=== PATIENT | male | born 1960 | race Hispanic/Latino ===

== ENCOUNTER 2019-01-30 08:57 | Observation (INO) | payer BC, OTHER ==
[2019-01-30 09:08] VITALS: BMI 31.3
[2019-01-30 09:09] VITALS: RESP 18
--- NOTE | 2019-01-30 09:41 | ED PDOC ---
Arrival/HPI - General Chief Complaint: Cough, Cold, Congestion Historian: Patient - History of Present Illness Narrative History of Present Illness (Text): 01/30/19 09:37 58 y/o male, pmh including htn/hld, nkda, c/o coughing x 1 month. Pt. has been having productive coughing on and off x 1 month, productive coughing with phelgm, tried oral antibiotics outpatient, had CT chest yesterday at [facility] by pmd Dr. Jacobsen which told it's mass vs. pneumonia which he has been having bloody sputum, told by the pmd Dr. Jacobsen for admission, no chest pain or shortness of breath, no night sweat, no rash, no dizziness, no weight loss, no other medical or psychological complaints. Past Medical History - Provider Review Nursing Documentation Reviewed: Yes - Tetanus Immunization Tetanus Immunization: Up to Date - Past Medical History Past Medical History: No Previous - Cardiac Hx Hypertension: Yes Hx Pacemaker: No - Pulmonary Hx Respiratory Disorders: (collapsed left lung from an accident) - Neurological Hx Paralysis: No - HEENT Hx HEENT Disorder: No - Renal Hx Renal Disorder: No - Endocrine/Metabolic Hx Endocrine Disorders: No - Hematological/Oncological Hx Blood Transfusions: No Hx Blood Transfusion Reaction: No - Integumentary Hx Dermatological Disorder: No - Musculoskeletal/Rheumatological Hx Musculoskeletal Disorders: No - Genitourinary/Gynecological Hx Genitourinary Disorders: No - Psychiatric Hx Emotional Abuse: No Hx Physical Abuse: No Hx Substance Use: No - Surgical History Other/Comment: cyst removal - Anesthesia Hx Anesthesia: Yes Hx Anesthesia Reactions: No Hx Malignant Hyperthermia: No - Suicidal Assessment Feels Threatened In Home Enviroment: No Family/Social History - Physician Review Nursing Documentation Reviewed: Yes Family/Social History: Unknown Family HX Smoking Status: Never Smoked Hx Alcohol Use: Yes (ocassional drinking) Hx Substance Use: No Allergies/Home Meds Allergies/Adverse Reactions: Allergies No Known Allergies Allergy (Verified 06/13/14 16:44) Home Medications: Home Meds Medication Instructions Recorded Confirmed Lisinopril/Hydrochlorothiazide 1 tab PO DAILY 09/04/15 01/30/19 [Lisinopril-Hydrochlorothiazide 12.5 mg-20 mg] Omeprazole Magnesium [Prilosec Otc] 20 mg PO DAILY 09/07/15 01/30/19 Review of Systems - Review of Systems Constitutional: absent: Fatigue, Fevers Eyes: absent: Vision Changes ENT: absent: Hearing Changes Respiratory: Cough, Sputum. absent: SOB, Wheezing Cardiovascular: absent: Chest Pain Gastrointestinal: absent: Abdominal Pain, Diarrhea, Nausea, Vomiting Musculoskeletal: absent: Arthralgias, Back Pain Skin: absent: Rash, Pruritis, Other Neurological: absent: Headache, Dizziness Psychiatric: absent: Anxiety, Depression, Suicidal Ideation Physical Exam Vital Signs Reviewed: Yes Vital Signs Temp Pulse Resp BP Pulse Ox 01/30/19 09:08 98.0 F 76 18 116/64 99 Temperature: Afebrile Blood Pressure: Normal Pulse: Regular Respiratory Rate: Normal Appearance: Positive for: Well-Appearing, Non-Toxic, Comfortable Pain Distress: None Mental Status: Positive for: Alert and Oriented X 3 - Systems Exam Head: Present: Atraumatic, Normocephalic Pupils: Present: PERRL Extroacular Muscles: Present: EOMI Conjunctiva: Present: Normal Mouth: Present: Moist Mucous Membranes Pharnyx: No: ERYTHEMA, EXUDATE, TONSILS ENLARGED, Muffled/Hoarse Voice, Strider, Soft Palate/Uvular Edema Nose (External): Present: Atraumatic. No: Abrasion, Contusion, Laceration, Lesions Nose (Internal): Present: Normal Inspection, No Active Bleeding. No: Rhinorrhea, Septal Deviation, Septal Hematoma, Epistaxis Neck: Present: Normal Range of Motion, Trachea Midline. No: MIDLINE TENDERNESS, Paraspinal Tenderness, Lymphadenopathy Respiratory/Chest: Present: Clear to Auscultation, Good Air Exchange. No: Respiratory Distress, Accessory Muscle Use, Wheezes, Decreased Breath Sounds, Rales, Retracting, Rhonchi, Tachypneic, Tender to Palpation Cardiovascular: Present: Regular Rate and Rhythm, Normal S1, S2. No: Murmurs Abdomen: Present: Normal Bowel Sounds. No: Tenderness, Distention, Peritoneal Signs, Rebound, Guarding Back: Present: Normal Inspection Upper Extremity: Present: Normal Inspection. No: Cyanosis, Edema Lower Extremity: Present: Normal Inspection. No: Edema Neurological: Present: GCS=15, CN II-XII Intact, Speech Normal Skin: Present: Warm, Dry, Normal Color. No: Rashes Psychiatric: Present: Alert, Oriented x 3, Normal Insight, Normal Concentration Medical Decision Making ED Course and Treatment: 01/30/19 09:42 Differential: failure of outpatient pneumonia vs. cancer mass vs. dehydration -I spoke to Dr. Jacobsen about his report which is concerning for unresolved pneumonia vs. tumor from the CT chest. Dr. Jacobsen would like to admit the patient for IV rocephine/azithromycin and routine consult order for Dr. Leary. -Labs -ekg -cxr -IV rocephine and azithromycin -Observe and reassess 01/30/19 11:08 -EKG: NSR @ 60 BPM, no ST elevation or depression, T wave inversion on lead III. -Chest xray show lt. lung mass vs. consolidation -Labs are non-significant -BNP within normal limit -I discussed with the patient that he needs further evaluation, he agreed to be admitted. - RAD Interpretation Radiology Orders: 01/30/19 09:34 CHEST TWO VIEWS (PA/LAT) [RAD] Stat Date of service: 01/30/2019 HISTORY: Medical clearance. COMPARISON: 09/23/2014. FINDINGS: LUNGS: Left lower lobe infiltrate/mass. The area of interest measures approximately 9 cm. PLEURA: No significant pleural effusion identified, no pneumothorax apparent. CARDIOVASCULAR: No atherosclerotic calcification present Normal. OSSEOUS STRUCTURES: No significant abnormalities. VISUALIZED UPPER ABDOMEN: Normal. OTHER FINDINGS: None. IMPRESSION: Left lower lobe infiltrate/mass. Follow-up to resolution recommended. CT thorax should be considered if neoplasm is suspected. Concordant results with the preliminary interpretation rendered by the emergency department physician\PA at the conclusion of the procedure. Operations Project Manager: Radiologist - PA / SEWING MACHINE OPERATOR ZIPPER / Resident Statement MD/DO has reviewed & agrees with the documentation as recorded. Disposition/Present on Arrival - Present on Arrival Any Indicators Present on Arrival: No History of DVT/PE: No History of Uncontrolled Diabetes: No Urinary Catheter: No History of Decub. Ulcer: No History Surgical Site Infection Following: None - Disposition Have Diagnosis and Disposition been Completed?: Yes Diagnosis: Pneumonia, Lung mass Disposition: HOSPITALIZED Disposition Time: 11:09 Patient Plan: Admission Patient Problems: Current Active Problems Problem Status Onset Lung mass Acute Pneumonia Acute Condition: STABLE
[2019-01-30 10:39] LABS: BASO # 0.04 K/mm3 (0.0-2.0); BASO % 0.6 % (0.0-3.0); EOS # 0.1 (0.0-0.7); EOS % 2.1 % (1.5-5.0); LYMPH # 1.3 (1.2-3.4); LYMPH % 19.9 % (22.0-35.0); MEAN CELL VOLUME 87.7 fl (80.0-105.0); MEAN CORPUSCULAR HGB CONC 33.1 g/dl (31.0-37.0); MEAN PLATELET VOLUME 10.6 fl (7.0-11.0); MONO # 0.7 (0.1-0.6); MONO % 11.3 % (1.0-6.0); RBC 4.48 10^6/uL (3.5-6.1); RED CELL DISTRIBUTION WIDTH 13.8 % (11.5-14.5); WHITE BLOOD COUNT 6.3 10^3/uL (4.5-11.0)
[2019-01-30 10:50] LABS: ALB/GLOB RATIO 1.2 (1.1-1.8); ALBUMIN 4.2 g/dL (3.0-4.8); ALT/SGPT 17 U/L (7-56); AST/SGOT 19 U/L (17-59); BLOOD UREA NITROGEN 15 mg/dL (7-21); CALCIUM 9.6 mg/dL (8.4-10.5); GFR NON-AFRICAN AMERICAN > 60
[2019-01-30 10:58] LABS: B-TYPE NATRIURETIC PEPTIDE 42.9 pg/mL (0-450)
[2019-01-30] MEDS ORDERED: cefTRIAXone 1 gm 1 GM/100 ML BAG IVPB STA (11:02)
[2019-01-30] MEDS ORDERED: Azithromycin 500MG/NS 250ml 500 MG/250 ML BAG IVPB STA (11:02)
--- NOTE | 2019-01-30 11:14 | RAD ---
Date of service: 01/30/2019 HISTORY: Medical clearance. COMPARISON: 09/23/2014. FINDINGS: LUNGS: Left lower lobe infiltrate/mass. The area of interest measures approximately 9 cm. PLEURA: No significant pleural effusion identified, no pneumothorax apparent. CARDIOVASCULAR: No atherosclerotic calcification present Normal. OSSEOUS STRUCTURES: No significant abnormalities. VISUALIZED UPPER ABDOMEN: Normal. OTHER FINDINGS: None. IMPRESSION: Left lower lobe infiltrate/mass. Follow-up to resolution recommended. CT thorax should be considered if neoplasm is suspected. Concordant results with the preliminary interpretation rendered by the emergency department physician procedure.
[2019-01-30] MEDS ORDERED: Sodium Chloride 0.9% 1,000 ML IV SCH (11:15)
--- NOTE | 2019-01-30 11:33 | CARD ---
APPROVED REPORT Date of service: 01/30/2019 EKG Measurement Heart [id number] <Conclusion> Normal sinus rhythm Normal ECG
[2019-01-30 12:28] VITALS: BP 120/60; PULSE 80; TEMP 98; O2SAT 98
[2019-01-30] MEDS ORDERED: Levalbuterol 0.63 MG/3 ML Inhal Soln UD IH PRN (13:58)
[2019-01-30] MEDS ORDERED: Sodium Chloride 0.45% 1,000 ML IV SCH (14:00)
--- NOTE | 2019-01-30 15:11 | CT ---
Date of service: 01/30/2019 PROCEDURE: CT Chest, Abdomen and Pelvis with intravenous contrast HISTORY: pnemonia vs lung mass COMPARISON: None available. TECHNIQUE: IV dose administered: 150 cc of Omni 350 Radiation dose: Total exam DLP = 983.76 mGy-cm. This CT exam was performed using one or more of the following dose reduction techniques: Automated exposure control, adjustment of the mA and/or kV according to patient size, and/or use of iterative reconstruction technique. FINDINGS: CT CHEST WITH CONTRAST: LUNGS: There is a large mass in the left lower lobe. This measures 8 cm in height by 8.3 cm AP and 6.9 cm wide. There are no air bronchograms to suggest lung consolidation. This is suspicious for a solid mass. There is also a 1.1 cm nodule in the right lower lobe. MEDIASTINUM: Unremarkable. Normal caliber aorta and pulmonary arterial trunk. No aortic dissection. Normal size heart. LYMPH NODES: Enlarged left hilar lymph nodes are seen. Subcarinal nodes are also seen. Mildly enlarged nodes are seen in the aortopulmonary window. PLEURA: Unremarkable. No pneumothorax. No pleural fluid. BONES: Multilevel disc degeneration OTHER FINDINGS: None. CT ABDOMEN AND PELVIS: LIVER: Unremarkable. No gross lesion or ductal dilatation. Simple cysts are seen in the liver. There is no evidence of metastatic disease GALLBLADDER AND BILE DUCTS: Unremarkable. PANCREAS: Unremarkable. No gross lesion or ductal dilatation. SPLEEN: Unremarkable. ADRENALS: Unremarkable. No mass. KIDNEYS AND URETERS: Unremarkable. No hydronephrosis. No solid mass. VASCULATURE: No aortic atherosclerotic calcification or mural plaque present. Unremarkable. No aortic aneurysm. BOWEL: Unremarkable. No obstruction. No gross mural thickening. APPENDIX: Normal appendix. PERITONEUM: Unremarkable. No free fluid. No free air. LYMPH NODES: Unremarkable. No enlarged lymph nodes. BLADDER: Unremarkable. REPRODUCTIVE: Unremarkable. BONES: No acute fracture. OTHER FINDINGS: None. IMPRESSION: There is a large mass in the left lower lobe. This measures 8 cm in height by 8.3 cm AP and 6.9 cm wide. There are no air bronchograms to suggest lung consolidation. This is suspicious for a solid mass. There is also a 1.1 cm nodule in the right lower lobe. There is left hilar and subcarinal adenopathy.
--- NOTE | 2019-01-30 17:07 | US ---
HISTORY: Leg pain and swelling. Evaluate for DVT PHYSICIAN(S): Philipp Urban MD. TECHNIQUE: Duplex sonography and color-flow Doppler with graded compression were used to evaluate the deep venous systems of both lower extremities. FINDINGS: The visualized deep venous systems of both lower extremities are sonographically normal and compressible. Normal wave forms and augmentation are seen. There is no sonographic evidence for deep venous thrombosis in the visualized segments of both lower extremities. IMPRESSION: No sonographic evidence for deep venous thrombosis in the visualized segments of both lower extremities.
--- NOTE | 2019-01-30 17:27 | CP.PCM.CON ---
History of Present Illness - History of Present Illness History of Present Illness: General Surgery Consult note for Dr. Gladys Mayo, PGY-2 Pt seen/examined at bedside with attending physician 58M w/PMH sig for second hand tobacco exposure consulted for left lung mass finding on CT scan. Pt reports intermittent coughing x 1 mo. Coughing incited by phlegm production. At the start of symptoms, pt reports coughing up bright red clots, now reports coughing up streaks of orange blood. Admits to intention al wt loss (15 lbs/past few mos- due to decreased PO intake). Reports travel to [facility] in 2018. Has hx of hemorroids and chronic constipation with occasional bright red blood on toilet paper, no changes in stool caliber or consistency. Denies asbestos exposure, night sweats, unintentional wt loss, melena, hematuria, changes in appetite, changes in urination, SOB, CP, N & V, F & C. PMH: HTN, GERD, HLD, b/l knee arthritis, chronic constipation, hemorrhoids, remote hx of pneumothorax of left lung due to trauma (fall) with CT placement. Had colonoscopy & EGD in 2015 without any reported findings as per pt PSH: L neck cyst excision All: NKDA SH: Denies tobacco, ETOH, or illicit drug use. 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 Father smoked heavily daily while growing up, lived at home until 19yrs old. FH: F- heavy tobacco use, M- breast CA PMD: Saleeb Review of Systems - Review of Systems All systems: reviewed and no additional remarkable complaints except - Constitutional Constitutional: absent: Chills, Fever, Headache, Night Sweats, Weight Loss, Weakness - EENT Eyes: absent: Change in Vision Ears: absent: Dizziness Nose/Mouth/Throat: absent: Dysphagia, Sore Throat - Cardiovascular Cardiovascular: absent: Chest Pain - Respiratory Respiratory: Cough, Hemoptysis, Excessive Mucous Production, Change in Mucous Color. absent: Dyspnea, Dyspnea on Exertion, Wheezing, Chest Congestion, Pain with Coughing - Gastrointestinal Gastrointestinal: Constipation (chronic). absent: Abdominal Pain, Change in Stool Character, Diarrhea, Hematemesis, Hematochezia, Loose Stools, Melena, Nausea, Vomiting - Genitourinary Genitourinary: absent: Change in Urinary Stream, Hematuria - Musculoskeletal Musculoskeletal: absent: Back Pain, Neck Pain, Numbness, Tingling - Integumentary Integumentary: absent: Rash - Neurological Neurological: absent: Dizziness, Weakness - Psychiatric Psychiatric: absent: Change in Appetite - Endocrine Endocrine: absent: Fatigue Past Patient History - Tetanus Immunizations Tetanus Immunization: Up to Date - Past Social History Smoking Status: Never Smoked - CARDIAC Hx Hypertension: Yes Hx Pacemaker: No - PULMONARY Hx Respiratory Disorders: (collapsed left lung from an accident) - NEUROLOGICAL Hx Paralysis: No - HEENT Hx HEENT Problems: No - RENAL Hx Chronic Kidney Disease: No - ENDOCRINE/METABOLIC Hx Endocrine Disorders: No - HEMATOLOGICAL/ONCOLOGICAL Hx Blood Transfusions: No Hx Blood Transfusion Reaction: No - INTEGUMENTARY Hx Dermatological Problems: No - MUSCULOSKELETAL/RHEUMATOLOGICAL Hx Musculoskeletal Disorders: No - GENITOURINARY/GYNECOLOGICAL Hx Genitourinary Disorders: No - PSYCHIATRIC Hx Emotional Abuse: No Hx Physical Abuse: No Hx Substance Use: No - SURGICAL HISTORY Other/Comment: cyst removal - ANESTHESIA Hx Anesthesia: Yes Hx Anesthesia Reactions: No Hx Malignant Hyperthermia: No Meds Allergies/Adverse Reactions: Allergies Allergy/AdvReac Type Severity Reaction Status Date / Time No Known Allergies Allergy Verified 06/13/14 16:44 - Medications Medications: Current Medications Arformoterol Tartrate (Brovana) 15 mcg IH [id number] OMARI Budesonide (Pulmicort Respules) 0.5 mg IH [id number] OMARI Sodium Chloride (Sodium Chloride 0.45%) 1,000 mls @ 100 mls/hr IV .Q10H OMARI Stop: 01/31/19 09:00 Levalbuterol HCl (Xopenex) 0.63 mg IH [id number] PRN PRN Reason: Shortness of Breath Levofloxacin (Levaquin) 750 mg PO DAILY [facility]; Protocol Pantoprazole Sodium (Protonix Inj) 40 mg IVP DAILY [facility] Physical Exam - Constitutional Appears: Non-toxic, No Acute Distress - Head Exam Head Exam: ATRAUMATIC, NORMAL INSPECTION, NORMOCEPHALIC - Eye Exam Eye Exam: EOMI, Normal appearance - ENT Exam ENT Exam: Mucous Membranes Moist, Normal Exam - Neck Exam Neck exam: Positive for: Full Rom, Normal Inspection. Negative for: Lymphadenopathy, Tenderness - Respiratory Exam Respiratory Exam: Clear to Auscultation Bilateral, NORMAL BREATHING PATTERN. absent: Accessory Muscle Use, Chest Wall Tenderness, Rales, Rhonchi, Wheezes, Respiratory Distress Additional comments: Well healed linear scar over left chest in axillary line - Cardiovascular Exam Cardiovascular Exam: REGULAR RHYTHM, +S1, +S2 - GI/Abdominal Exam GI & Abdominal Exam: Hernia (umbilical), Normal Bowel Sounds, Soft. absent: Distended (obese), Firm, Guarding, Tenderness - Extremities Exam Extremities exam: Positive for: full ROM, normal inspection. Negative for: pedal edema, tenderness - Back Exam Back exam: NORMAL INSPECTION - Neurological Exam Neurological exam: Alert, CN II-XII Intact, Normal Gait, Oriented x3 - Psychiatric Exam Psychiatric exam: Normal Affect, Normal Mood - Skin Skin Exam: Dry, Intact, Normal Color, Warm Results - Vital Signs Recent Vital Signs: Last Vital Signs Temp 98 F 01/30/19 12:26 Pulse 80 01/30/19 12:26 Resp 18 01/30/19 12:26 BP 120/60 01/30/19 12:26 Pulse Ox 98 01/30/19 12:26 - Labs Result Diagrams: 01/30/19 10:23 01/30/19 10:23 Labs: Laboratory Results - last 24 hr 01/30/19 01/30/19 10:23 10:23 WBC 6.3 RBC 4.48 Hgb 13.0 L Hct 39.3 L MCV 87.7 MCH 29.0 MCHC 33.1 RDW 13.8 Plt Count 251 MPV 10.6 Neut % (Auto) 66.1 Lymph % (Auto) 19.9 L [place] % (Auto) 11.3 H Eos % (Auto) 2.1 Baso % (Auto) 0.6 Lymph # (Auto) 1.3 [place] # (Auto) 0.7 H Eos # (Auto) 0.1 Baso # (Auto) 0.04 Absolute Neuts (auto) 4.14 Sodium 138 Potassium 4.1 Chloride 102 Carbon Dioxide 27 Anion Gap 13 BUN 15 Creatinine 0.9 Est GFR ( Amer) > 60 Est GFR (Non-Af Amer) > 60 Random Glucose 104 Calcium 9.6 Magnesium 2.3 H Total Bilirubin 0.4 AST 19 ALT 17 Alkaline Phosphatase 70 NT-Pro-B Natriuret Pep 42.9 Total Protein 7.6 Albumin 4.2 Globulin 3.4 Albumin/Globulin Ratio 1.2 Assessment & Plan - Assessment and Plan (Free Text) Assessment: 58M w/left lung lesion and hemoptysis Plan: Recommend IR biopsy of lesion of left lung lesion Further surgical recommendations pending pathology results Further care as per primary team DW Dr. Eufemia Mayo, PGY-2 - Date & Time Date: 01/30/19 Time: 17:48
[2019-01-30] MEDS ORDERED: Pneumococcal 23-Valent Vaccine IM ONE (17:48)
[2019-01-30] MEDS ORDERED: Influenza Vaccine 60 mcg/0.5 mL SYR (4YR UP) IM ONE (17:48)
--- NOTE | 2019-01-30 19:02 | CON ---
DATE: 01/30/2019 PULMONARY CONSULTATION NOTE REFERRING PHYSICIAN: Isaiah Jacobsen MD. REASON FOR CONSULTATION: Lung mass and cough. HISTORY OF PRESENT ILLNESS: This is a 58-year-old male with past medical history significant for hypertension, hyperlipidemia, who presented to emergency room complaining of a cough for about a month. The patient reports he has been having productive cough on and off for one month. He was placed on oral antibiotics as outpatient. The patient had chest CT as outpatient which was suggested by primary medical doctor. Chest CT showed mass versus pneumonia. The patient reports having bloody sputum, came to [facility] for admission concerning cough and lung mass. Today, the patient seen sitting up in bed. Reports still having cough, hemoptysis. Denies any shortness of breath, states that his appetite is good, had intentional weight loss where he lost about 10 pounds in the last few months, a nonsmoker. Denies any sick contracts. 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 PAST MEDICAL HISTORY: As per history of present illness. ALLERGIES: NO KNOWN ALLERGIES. SOCIAL HISTORY: He is nonsmoker. Social drinker. No illicit drug use. FAMILY HISTORY: Reports mother had breast cancer. MEDICATIONS: Reviewed. Xopenex 0.63 mg inhalation every 6 hours p.r.n., Protonix 40 mg IV push daily, and sodium chloride 0.45% 1000 mL at 100 mL per hour. REVIEW OF SYSTEMS: No headache, rhinitis, chest pain, abdominal pain, nausea, vomiting, diarrhea, leg pain or leg swelling reported. The patient reports hemoptysis, coughing for a month. PHYSICAL EXAMINATION GENERAL: No acute distress. VITAL SIGNS: Blood pressure 120/60, pulse 80, temperature 98, and oxygen saturation 98% on room air. HEENT: Moist mucous membranes. Mallampati score 4. NECK: Supple. No JVD. LUNGS: Few scattered rhonchi. Decreased breath sounds on the left base. CARDIOVASCULAR: S1 and S2. ABDOMEN: Soft and nontender. No distension. No organomegaly. EXTREMITIES: No bilateral lower extremity edema. NEUROLOGIC: Awake, alert, verbal, and following commands. LABORATORY DATA: Reviewed. WBC 6.3, RBC 4.48, hemoglobin 30, hematocrit 39.3, and platelets 251. Sodium 138, potassium 4.1, chloride 102, carbon dioxide 27, anion gap 13, BUN 15, creatinine 0.9, GFR greater than 60, random glucose 104, calcium 9.6, magnesium 2.3, total bilirubin 0.4, AST 19, ALT 17, alkaline phosphatase 70, pro BNP 42.9, total protein 7.4, albumin 4.2, globulin 3.4 and albumin-globulin ratio 1.2. EKG shows normal sinus rhythm. Chest x-ray shows left lower lobe infiltrate or mass. Chest, abdomen, and pelvis CT shows large mass in the left lower lobe, measured 8 cm in height by 8.3 cm AP and 6.9 cm wide. No air bronchograms to suggest lung consolidation, suspicious for a solid mass, also 1.1 cm nodule in the right lower lobe, left hilar and subcarinal adenopathy. Extremity ultrasound; no sign of graphic evidence for deep venous thrombosis in both lower extremities. IMPRESSION AND PLAN: Lung mass versus pneumonia, hypertension, and hyperlipidemia. We will place the patient on Brovana and Pulmicort nebulizer treatment routine. We will start Levaquin 750 mg daily. We will order procalcitonin level to be done. We will order human immunodeficiency virus, Streptococcus antigen, TB gold test, sedimentation rate, C-reactive protein, urine for Legionella antigen, IgM, IgG mycoplasma will be ordered. The patient is pending possible biopsy of lung mass. We will place the patient on Lovenox for deep venous thrombosis prophylaxis. Continue gastric prophylaxis. This patient was seen and examined with Dr. Leary. Discussed assessment and plan as described above. This patient was seen and examined with Kim Pedro, nurse practitioner. Discussed assessment and plan as described above. Thank you for this consult and we will follow with you. Willis Alvarez APN Taz Leary MD LULÚ
[2019-01-30] MEDS ORDERED: Arformoterol 15 mcg/2 ml Inh Sol IH SCH (20:00)
[2019-01-30] MEDS ORDERED: Budesonide 0.5 mg/2 ml Inhal Susp UD IH SCH (20:00)
--- NOTE | 2019-01-31 02:35 | CON ---
DATE: 01/30/2019 This is [facility] consult on the medical floor. For Dr. Simmons. CHIEF COMPLAINT: Hemoptysis. HISTORY OF PRESENT ILLNESS: The patient is 58-year-old male admitted via the emergency room for evaluation of coughing up blood off and on for the past month with a CT scan done recently showing a mass with retesting done today with confirmation of an 8 x 8.3 x 6.9 cm left lower lobe mass along with a 1.1 cm right lower lobe mass with left hilar and subcarinal adenopathy. The patient is otherwise in no acute distress. He is for further testing including tissue diagnosis and biopsy to be planned in the near future with Dr. Philipp Urban as indicated. ALLERGIES: NO KNOWN ALLERGIES. MEDICATIONS: Patient's medications include lisinopril, atorvastatin, omeprazole, and aspirin. FAMILY HISTORY/SOCIAL HISTORY: A nonsmoker, a heavy beer drinker until 3 years ago when he quit and now rarely imbibes in beer. 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 PAST MEDICAL HISTORY: Denied except for hypertension, hyperlipidemia, GERD along with history of left lung collapse with re-inflation approximately 20 years prior. REVIEW OF SYSTEMS: A 12-point review of systems was done, which was negative to questioning except for items mentioned in history of present illness. OBJECTIVE FINDINGS/PHYSICAL EXAMINATION: VITAL SIGNS: Temperature 98, pulse 80, respirations 18, blood pressure 120/60, pulse ox 98%. HEENT: Unremarkable. NECK: Supple. HEART: Regular rate. LUNGS: Clear. ABDOMEN: Soft, obese, and nontender. EXTREMITIES: Painful swelling edema of the left lower extremity of a chronic nature he reports. SKIN: Otherwise warm, dry, and clear. NEUROLOGIC: Awake, alert, and oriented x3. LABORATORY DATA: The patient's labs were done. White blood cell count of 6.3, hemoglobin 13.0, hematocrit 39.3, platelet count of 251,000. Metabolic panel is completely within normal range with a magnesium of 2.3. Patient had an EKG done earlier today, it was read as normal sinus rhythm, normal EKG. The patient had a chest x-ray done earlier today. It was read as left lower lobe infiltrates/mass, followup to resolution is recommended. CT thorax should be considered if neoplasm is suspected. Patient did have a CT scan of chest, abdomen, and pelvis. The impression was as above. There was a large mass in the left lower lobe and this measured 8 cm in height, 8.2 cm AP, and 6.9 cm wide. There are no air bronchograms to suggest lung consolidation, this is suspicious for a solid mass. There is also a 1.1 cm nodule in the right lower lobe. There is left hilar and subcarinal adenopathy. Patient did have an ultrasound of his lower extremities done today; no evidence of DVT visualized. ASSESSMENT: For this patient is that of a new lung mass with nodules suspicious for neoplastic change, hemoptysis/cough, hypertension, hyperlipidemia, and gastroesophageal reflux disease. PLAN: For this patient, after conversation with Dr. Simmons is to continue the present medical regimen with tissue diagnosis. Planned for as per scheduling with Dr. Philipp Urban. Also consult Dr. Leary of Pulmonary with his medications to continue as per Dr. Jacobsen, his primary doctor. Once tissues diagnosis is obtained, Dr. Simmons will evaluate the need for further recommendations including treatment as indicated. We will also check tumor marker CEA values for the morning. This is a complex patient with a comprehensive medically necessary and appropriate visit carried out in excess of 40 minutes with the patient's questions answered to his satisfaction. Sean Blackman MD
--- NOTE | 2019-01-31 03:01 | HP ---
DATE OF EXAM: 01/30/2019 REASON FOR ADMISSION: The main reason is coughing, hemoptysis and x-ray shows possible mass, pneumonia. HISTORY OF PRESENT ILLNESS: This patient is a 58-year-old male, who has been coughing for the last week, was given p.o. antibiotic as outpatient, had an x-ray as outpatient that showed a mass and the patient had initial CT, shows also questionable mass versus consolidation pneumonia. The patient was admitted for evaluation of pneumonia and further consultation by Dr. Leary, pulmonary consult. He does have some cough, streaks of blood initially, hemoptysis and phlegm with blood. The patient denied any chest pain, any shortness of breath, any nausea or vomiting. There is no fever, no chills. The patient did have a history of left lung collapse 20 years ago. He does work in the [employer] business; otherwise, no history of smoking. The patient has also in the last couple of months he did lose 10 pounds. He has been on a diet for weight loss, but he did have last week some diarrhea and that resolved and he feels better now. HOME MEDICATIONS: He is taking Pravachol 10 mg daily, he is taking Prilosec 20 mg daily. He is taking lisinopril with hydrochlorothiazide 20/12.5 mg daily. ALLERGIES: NO KNOWN ALLERGY. SOCIAL HISTORY: He drinks occasionally, but he never smoked. No drugs history. He had a . REVIEW OF SYSTEMS: The patient denied any dyspnea, any chest pains, any abdominal pain. He does have some gastroesophageal reflux on and off, but otherwise stable. He does have knee arthritis and sometimes leg discomfort, elbow pain. Otherwise negative. PHYSICAL EXAMINATION GENERAL: The patient was in a bed. He seems comfortable. No distress. He is a little anxious. VITAL SIGNS: Temperature 98, heart rate 76, blood pressure 116/64, respiration 18, saturation 99%. HEENT: Head and neck examination normal. No JVD. No thyromegaly. CARDIAC: First sound and second sound normal. No murmur, rub or gallop. ABDOMEN: Soft, nontender. EXTREMITIES: Minimal edema, both legs. NEUROLOGICAL: Normal. LABORATORY DATA: Shows white count 6.4, hemoglobin 13, hematocrit 39.3, platelets 251. His chemistry shows sodium 138, potassium 4.1, chloride 102, bicarb 27, BUN 15, creatinine 0.9, magnesium 2.3. Liver function test is normal. Albumin and globulin is normal. Total protein is normal 7.6. ProBNP is 42.9. Alk phos is normal. AST 19, ALT 17, magnesium 2.3, total bilirubin 0.4. The patient also had a chest x-ray, which shows left lung mass and a CT abdomen and pelvis, which were negative, a small cyst in the liver. CT of the lung shows a lung mass, possible consolidation, but favor of mass. The patient has venous Doppler that was negative. IMPRESSION AND PLAN 1. Left lung mass versus superimposed obstructive pneumonia. We will continue antibiotics. Dr. Leary, Pulmonary consult; Dr. Philipp Urban, Interventional Radiology for possible biopsy. Probably the patient will need a surgical evaluation for biopsy or a left lung biopsy first, then we will determine the course of action after that. An Oncology consult has been ordered, Dr. Simmons and his partner. We will continue to follow up on that and their recommendations. Discussed the case with Dr. Leary in detail and we will follow up clinically. ADDENDUM TO THE ABOVE HISTORY: The did later call and she wants to get another opinion at [facility], so the patient was given the choice and definitely I recommended for him a biopsy is a must to know the diagnosis and further investigations. I did recommend CT of the head for the patient, but he said no, he has enough CAT scans and he wants to go home, get some antibiotic cough medicine and then will see another opinion. I did recommend to get a biopsy and also the patient advised to follow up as outpatient and also signed against medical advice. Isaiah Jacobsen MD
[2019-01-31] MEDS ORDERED: levoFLOXacin 750 MG TAB PO SCH (10:00)
[2019-01-31] MEDS ORDERED: Enoxaparin 40 mg Syringe SC SCH (10:00)
--- NOTE | 2019-01-31 10:54 | CP.PCM.CON ---
History of Present Illness - History of Present Illness History of Present Illness: Maurice Peck PGY2 Heme/Onc Consult note for Dr. Simmons 58M w/PMH of HTN, GERD, HLD, b/l knee arthritis, chronic constipation, hemorrhoids, pneumothorax of left lung due to trauma (fall) with CT placement consulted for left lung mass finding on CT scan. Patient states he has had coughing for the past month with some blood present. Patient also states he has had over 15 pound weight loss in the past month. He denies fever, chills, night sweats, melena, hematuria, changes in appetite, changes in urination, SOB, CP, N & V. PMH: HTN, GERD, HLD, b/l knee arthritis, chronic constipation, hemorrhoids, remote hx of pneumothorax of left lung due to trauma (fall) with CT placement. Had colonoscopy & EGD in 2014 without any reported findings as per pt PSH: L neck cyst excision All: NKDA SH: Denies tobacco, ETOH, or illicit drug use. 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 Father smoked heavily daily while growing up, lived at home until 19yrs old. FH: mother had breast cancer PMD: Saleeb Past Patient History - Tetanus Immunizations Tetanus Immunization: Up to Date - Past Social History Smoking Status: Never Smoked - CARDIAC Hx Hypertension: Yes Hx Pacemaker: No - PULMONARY Hx Respiratory Disorders: (collapsed left lung from an accident) - NEUROLOGICAL Hx Paralysis: No - HEENT Hx HEENT Problems: No - RENAL Hx Chronic Kidney Disease: No - ENDOCRINE/METABOLIC Hx Endocrine Disorders: No - HEMATOLOGICAL/ONCOLOGICAL Hx Blood Transfusions: No Hx Blood Transfusion Reaction: No - INTEGUMENTARY Hx Dermatological Problems: No - MUSCULOSKELETAL/RHEUMATOLOGICAL Hx Musculoskeletal Disorders: No - GASTROINTESTINAL Hx Gastrointestinal Disorders: Yes (obese) Hx Gastroesophageal Reflux: Yes - GENITOURINARY/GYNECOLOGICAL Hx Genitourinary Disorders: No - PSYCHIATRIC Hx Emotional Abuse: No Hx Physical Abuse: No Hx Substance Use: No - SURGICAL HISTORY Other/Comment: cyst removal - ANESTHESIA Hx Anesthesia: Yes Hx Anesthesia Reactions: No Hx Malignant Hyperthermia: No Meds Allergies/Adverse Reactions: Allergies Allergy/AdvReac Type Severity Reaction Status Date / Time No Known Allergies Allergy Verified 06/13/14 16:44 Results - Vital Signs Recent Vital Signs: Last Vital Signs Temp 98 F 01/30/19 12:26 Pulse 80 01/30/19 17:20 Resp 18 01/30/19 17:20 BP 120/60 01/30/19 12:26 Pulse Ox 98 01/30/19 12:26 - Labs Result Diagrams: 01/30/19 10:23 01/30/19 10:23 Labs: Laboratory Results - last 24 hr 01/30/19 01/30/19 01/30/19 10:23 17:00 17:00 C-Reactive Protein 23.00 H NT-Pro-B Natriuret Pep 42.9 Procalcitonin < 0.05 L
== END 2019-01-30 19:15 | disposition left against medical advice (07) ==
LOC: ED 08:57 → ERH 11:09 → 3RSO 12:21
PROVIDERS: ADMIT Internal Medicine; ATTEND Internal Medicine
DX: J18.9 Pneumonia, unspecified organism (principal); E78.5 Hyperlipidemia, unspecified; I10 Essential (primary) hypertension; K21.9 Gastro-esophageal reflux disease without esophagitis; M17.0 Bilateral primary osteoarthritis of knee; Z77.22 Contact with and (suspected) exposure to environmental tobacco smoke (acute) (chronic); Z81.2 Family history of tobacco abuse and dependence; Z79.899 Other long term (current) drug therapy; Z80.3 Family history of malignant neoplasm of breast; K59.09 Other constipation; R91.8 Other nonspecific abnormal finding of lung field; R04.2 Hemoptysis
CPT/HCPCS: 36415; 71045; 71260; 74177; 80053; 83735; 83880; 84145; 85025; 86140; 87040; 93005; 93970; 96365; 99283; G0378; J0456; J0696; J7030; Q9967

== ENCOUNTER 2019-03-04 08:54 | Outpatient (CLI) | payer BC | END 2019-03-04 08:55 | disposition home or self-care (01) | LOC: RAD 08:54 ==

== ENCOUNTER 2019-03-08 06:53 | Day surgery (SDC) | payer BC ==
[2019-03-05 14:00] VITALS: BMI 32.3
[2019-03-08 07:22] LABS: BASO # 0.02 K/mm3 (0.0-2.0); BASO % 0.3 % (0.0-3.0); EOS # 0.3 (0.0-0.7); HEMOGLOBIN 12.9 g/dL (14.0-18.0); LYMPH # 1.1 (1.2-3.4); LYMPH % 17.2 % (22.0-35.0); MEAN CORPUSCULAR HEMOGLOBIN 28.7 pg (25.0-35.0); MEAN CORPUSCULAR HGB CONC 32.6 g/dl (31.0-37.0); MONO # 0.5 (0.1-0.6); MONO % 7.6 % (1.0-6.0); RBC 4.5 10^6/uL (3.5-6.1); RED CELL DISTRIBUTION WIDTH 13.5 % (11.5-14.5); WHITE BLOOD COUNT 6.6 10^3/uL (4.5-11.0)
[2019-03-08 07:25] LABS: INR 1.11; PARTIAL THROMBOPLASTIN TIME 37.7 Seconds (26.9-38.3); PROTHROMBIN TIME 12.5 SECONDS (9.4-12.5)
[2019-03-08 07:33] LABS: BLOOD UREA NITROGEN 17 mg/dL (7-21); CALCIUM 9.7 mg/dL (8.4-10.5); GFR NON-AFRICAN AMERICAN > 60
[2019-03-08] MEDS ORDERED: Midazolam 2 MG/2 ML VIAL ONE (09:31)
[2019-03-08] MEDS ORDERED: Midazolam 2 MG/2 ML VIAL IVP ONE (09:34)
[2019-03-08] MEDS ORDERED: Oxycodone/Acetaminophen 5/325 mg Tab PO PRN (09:52)
[2019-03-08] MEDS ORDERED: Sodium Chloride 0.45% 1,000 ML IV SCH (10:00)
[2019-03-08 10:52] VITALS: RESP 16; TEMP 97.9
--- NOTE | 2019-03-08 11:52 | CP.PCM.PCO ---
Summary - Summary of Event Summary of Event: House Resident Note Hardik Chiang DO, IM PGY-3 Called to evaluate patient s/p lung biopsy in same-day surgery. Report of chest pain and shortness of breath post-procedure. X-ray already obtained prior to my arrival, reviewed, lung mass noted but no pneumothorax appreciated. EKG also obtained, NSR with normal intervals. On exam, patient reports improvement of pain/shortness of breath after being sat up for the chest x-ray, no acute complaints at time of exam. Lungs clear to auscultation with breath sounds in all auscultated regions. Heart RRR, +S1/2 appreciated, no JVD. Likely post-procedure local irritation, no pneumothorax appreciated on exam, unlikely ACS. Already has tylenol and percocet ordered for pain, could also consider low-dose NSAID for anti-inflammatory effect. Consider repeat CXR in 2- 4 hours to rule out slow air leak. Called away for [employer] after eval, informed nursing of my recommendations and requested they relay to IR attending.
--- NOTE | 2019-03-08 12:35 | RAD ---
Date of service: 03/08/2019 HISTORY: POST LUNG BX C/O CHEST PAIN COMPARISON: 01/30/2019 TECHNIQUE: 1 view obtained. FINDINGS: LUNGS: Left lower lobe lung mass. No evidence of post biopsy pneumothorax PLEURA: No significant pleural effusion identified, no pneumothorax apparent. CARDIOVASCULAR: No aortic atherosclerotic calcification present. Normal cardiac size. No pulmonary vascular congestion. OSSEOUS STRUCTURES: No significant abnormalities. VISUALIZED UPPER ABDOMEN: Normal. OTHER FINDINGS: None. IMPRESSION: No evidence of post biopsy pneumothorax
--- NOTE | 2019-03-08 13:06 | CT ---
PROCEDURE: CT guided left lower lobe lung biopsy. HISTORY: 8 cm pole left lower lobe lung mass. Evaluate for malignant disease. PHYSICIAN(S): Philipp Urban MD. TECHNIQUE: The relative risks and indications of the procedure were explained to the patient and consent obtained. The patient was placed prone on the CT scanner and preliminary images through the lower lungs obtained. Conscious sedation and monitoring were provided throughout the procedure by a nurse. There is a well-defined 8 cm oval mass in the left lower lobe posteriorly. A left posterior and lateral approach was selected and the area prepped and draped in the usual sterile fashion. 1% Xylocaine was used to anesthetize the skin and soft tissues. A 17-gauge guiding needle was advanced into the 8 cm left lower lobe lung mass. Its position was confirmed with CT. Using coaxial technique, multiple core biopsies were obtained. The postprocedure images show no evidence of large pneumothorax or significant hemorrhage.. IMPRESSION: 1. CT-guided left lower lobe lung biopsy as described above.
[2019-03-08 13:34] VITALS: BP 107/64; PULSE 63; O2SAT 98
--- NOTE | 2019-03-08 19:47 | CARD ---
APPROVED REPORT Date of service: 03/08/2019 EKG Measurement Heart [id number] <Conclusion> Normal sinus rhythm Normal ECG
== END 2019-03-08 14:10 | disposition home or self-care (01) ==
LOC: SDS 06:53
PROVIDERS: ATTEND Radiology Vascular & Interventional Radiology
DX: C34.32 Malignant neoplasm of lower lobe, left bronchus or lung (principal); I10 Essential (primary) hypertension
CPT/HCPCS: 32405; 36415; 71045; 77012; 80048; 85025; 85610; 85730; 88305; 93005; 99152; J2250; J2405; J3010; J7030